=== PATIENT | male | born 1945 | race Caucasian/White ===

== ENCOUNTER 2024-01-26 14:12 | Outpatient (OUT) | payer MEDICARE, SELFPAY ==
--- NOTE | 2024-01-26 14:23 | XR_ITS ---
The [address] [address] Patient Name: OPAL STAFFORD MRN: [id number] date: 1945 Sex: M Assigned Patient Location: [facility] Current Patient Location: [facility] Accession/Order Number: [id number] Exam Date: 01/26/2024 14:33 Report Date: 01/28/2024 08:54 At the request of: EDI HOOKER Procedure: XR hip RT 2V w/ pelvis PROCEDURE: XR hip RT 2V w/ pelvis HISTORY: Right Hip Pain COMPARISON: None. FINDINGS: BONES:No fracture, acute abnormality, or significant arthropathy. SOFT TISSUES:No visible soft tissue swelling. EFFUSION:None visible. OTHER: Negative. XR/XR hip RT 2V w/ pelvis IMPRESSION: 1. No acute abnormality or significant degenerative change of the hip joints. 2. Degenerative changes and compression fractures seen on lumbar spine x-ray. Please see corresponding report. Electronically authenticated by: SIXTO AZUL Date: 01/28/2024 08:54
--- NOTE | 2024-01-26 14:23 | XR_ITS ---
The [place] [id number] Patient Name: OPAL STAFFORD MRN: [id number] date: 1945 Sex: M Assigned Patient Location: [facility] Current Patient Location: [facility] Accession/Order Number: [id number] Exam Date: 01/26/2024 14:33 Report Date: 01/28/2024 08:53 At the request of: EDI HOOKER Procedure: XR lumbar spine 6V w bending EXAMINATION: XR lumbar spine 6V w bending HISTORY: Low Back Pain M54.50 ; right side back pain radiating into right hip COMPARISON: No relevant comparison available. FINDINGS: BONES: Moderate compression fracture of L1 and L5; increased density adjacent superior endplate of L5. Minimal grade 1 retrolisthesis of L2 on 3, L3 on 4, L4 on 5. No change in alignment during flexion and extension. Multilevel moderate degenerative facet arthropathy. DISC SPACES: Moderate narrowing L4-L5, L5-S1. PARASPINOUS: Negative. No paraspinous abnormality is seen. OTHER: Negative. XR/XR lumbar spine 6V w bending IMPRESSION: 1. Age-indeterminate moderate compression fractures of L1 and L5 vertebral bodies. L5 is suspected to be acute to subacute. L1 favors chronic. 2. Mild to moderate degenerative changes of lower lumbar spine. Electronically authenticated by: SIXTO AZUL Date: 01/28/2024 08:53
== END 2024-01-26 14:13 | disposition home or self-care (01) ==
LOC: RAD 14:14
PROVIDERS: PCP Internal Medicine; Visit Provider Internal Medicine
DX: M54.50 Low back pain, unspecified (principal); M25.551 Pain in right hip; M48.56XA Collapsed vertebra, not elsewhere classified, lumbar region, initial encounter for fracture
CPT/HCPCS: 72114; 73502

== ENCOUNTER 2024-02-16 08:05 | Outpatient (OUT) | payer MEDICARE, SELFPAY ==
--- OUTSIDE RECORDS SUMMARY | 2024-02-16 08:06 | XMS_ITS | CCD ---
Author Organization [facility] Care Team Providers Care Cuff Setter Lockstitch Name Role Phone Agapito Linton Attending Provider [phone] Josh Jenkins Primary Care Provider REQUEST, DR ROBBINS LISTED Consulting Unavaila ble REQUEST, DR ROBBINS LISTED Admitting Unavaila ble NHUNG, DR DALEY Primary Care Unavailable REQUEST, DR ROBBINS LISTED Attending Unavaila ble BALL, DR DALEY Attending Unavailable BALL, DR DALEY Consulting Unavailable BALL, DR DALEY Primary Care Unavailable NHUNG, DR DALEY Admitting Unavailable Josh Hooker Unavailable Unavailable Unavailable Unavailable Medications Current Medications Medication Drug Class(es) Dates Sig (Normalized) Sig (Original) fluocinolone acetonide 0.1 mg/ml otic solution (5 sources) Corticosteroid Start: 04-01-2023 Fluocinolone Acetonide 0.01 % 5 drops into affected ear Otic Twice a day as needed for 7 days March, Active predniSONE 20 mg oral tablet (5 sources) Start: 04-01-2023 predniSONE 20 MG 1 tablet Orally three time daily w/ food x 3 days then bid w/ food x 3 days then qd w/ food x 3 days for 9 days March, Active Completed/Discontinued Medications Medication Drug Class(es) Dates Sig (Normalized) Sig (Original) triamcinolone acetonide 40 mg/ml injectable suspension (5 sources) Corticosteroid Start: 04-01-2023 Kenalog-40 March, 60 mg Problems Problem Classification Problem Date Documented Da te Episodic/Chronic Allergic reactions (4 sources) Other urticaria Episodic Hyperplasia of prostate (6 sources) Lower urinary tract symptoms due to benign prostatic hypertrophy; Translations: [Benign prostatic hyperplasia with lower urinary tract symptoms] Chronic Malaise and fatigue (12 sources) Fatigue; Translations: [Other fatigue] Episodic Other ear and sense organ disorders (5 sources) Chronic eczema of external auditory canal; Translations: [Other otitis externa, bilateral] Chronic Other ear and sense organ disorders (2 sources) Other otitis externa, bilateral Chronic Other screening for suspected conditions (not mental disorders or infectious disease) (1 source) Encounter for screening for malignant neoplasm of prostate Episodic Substance-related disorders (6 sources) Tobacco user; Translations: [Nicotine dependence, cigarettes, in remission] Chronic Results Test Name Value Interpretation Reference Range Facil ity CBC AUTO DIFFon 04-13-2023 BASO # 0.0 103/ul Normal 0.0-0.1 [facility] Comment on above: Performed By: #### C BC #### [facility] [address] [address] [address] Teresita Nixon Basophils/100 WBC (Bld) 0.3 % Normal 0.2-2.0 [facility] Comment on above: Performed By: #### C BC #### [facility] [address] [place] [address] Dr. Teresita Nixon EO # 0.1 103/ul Normal 0.0-0.7 [facility] Comment on above: Performed By: #### C BC #### [facility] [address] [address] [address] Teresita Nixon Eosinophils/100 WBC (Bld) 0.3 % Critically low 0.9-7.0 [facility] Comment on above: Performed By: #### C BC #### [facility] [address] [place] [address] Dr. Teresita Nixon Erythrocyte distribution width (RBC) [Ratio] 14.1 % Normal 11.0-15.0 [facility] Comment on above: Performed By: #### C BC #### [facility] [address] [place] [address] Dr. Teresita Nixon Hematocrit (Bld) [Volume fraction] 51.1 % Normal 42.0-54.0 [facility] Comment on above: Performed By: #### C BC #### [facility] [address] [place] [address] Dr. Teresita Nixon Hemoglobin (Bld) [Mass/Vol] 16.9 g/dL Normal 14.0-18.0 [facility] Comment on above: Performed By: #### C BC #### [facility] [address] [address] [address] Teresita Nixon IG # 0.15 10e3/ul Critically high 0.00-0.03 [facility] Comment on above: Performed By: #### C BC #### [facility] [address] [address] [address] Teresita Nixon IG % 1.0 % Critically high 0.0-0.5 [facility] Comment on above: Performed By: #### C BC #### [facility] [address] [address] [address] Teresita Nixon LYMPH # 1.3 103/ul Normal 1.2-3.8 [facility] Comment on above: Performed By: #### C BC #### [facility] [address] [place] [address] Dr. Teresita Nixon Lymphocytes/100 WBC (Bld) 8.8 % Critically low 20.5-60.0 [facility] Comment on above: Performed By: #### C BC #### [facility] [address] [place] [address] Dr. Teresita Nixon MANUAL DIFF REQ NO Normal [facility] Comment on above: Performed By: #### C BC #### [facility] [address] [place] [address] Dr. Teresita Nixon MCH (RBC) [Entitic mass] 31.8 pg Normal 25.9-34.0 [facility] Comment on above: Performed By: #### C BC #### [facility] [address] [place] [address] Dr. Teresita Nixon MCHC (RBC) [Mass/Vol] 33.1 g/dL Normal 29.9-35.2 [facility] Comment on above: Performed By: #### C BC #### [facility] [address] [place] [address] Dr. Teresita Nixon MCV (RBC) [Entitic vol] 96.1 fL Critically high 80.0-94.0 [facility] Comment on above: Performed By: #### C BC #### [facility] [address] [place] [address] Dr. Teresita Nixon MONO # 0.7 103/ul Normal 0.3-0.8 [facility] Comment on above: Performed By: #### C BC #### [facility] [address] [place], [place] [id number] Dr. Teresita Nixon Monocytes/100 WBC (Bld) 4.7 % Normal 1.7-12.0 [facility] Comment on above: Performed By: #### C BC #### [facility] [address] [place] [address] Dr. Teresita Nixon NEUT # 12.5 103/ul Critically high 1.4-6.5 [facility] Comment on above: Performed By: #### C BC #### [facility] [address] [place] [address] Dr. Teresita Nixon Neutrophils/100 WBC (Bld) 84.9 % Critically high 43.0-75.0 [facility] Comment on above: Performed By: #### C BC #### [facility] [address] [place] [address] Dr. Teresita Nixon Platelet mean volume (Bld) [Entitic vol] 9.7 fL Normal 9.5-13.5 [facility] Comment on above: Performed By: #### C BC #### [facility] [address] [place] [address] Dr. Teresita Nixon PLT 227 103/ul Normal 150-450 [facility] Comment on above: Performed By: #### C BC #### [facility] [address] [place] [address] Dr. Teresita Nixon RBC 5.32 106/ul Normal 4.70-6.10 [facility] Comment on above: Performed By: #### C BC #### [facility] [address] [place], [place] [id number] Dr. Teresita Nixon WBC 14.7 103/ul Critically high 4.0-11.0 [facility] Comment on above: Performed By: #### C BC #### [facility] [address] [place] [address] Dr. Teresita Nixon PROF CHEM 8 (BAS METB)on Anion gap [Moles/Vol] 12.2 mmol/L Normal [facility] Comment on above: Performed By: #### B MP, TSH #### [facility] [address] [place] [address] Dr. Teresita Nixon Calcium [Mass/Vol] 9.6 mg/dL Normal 8.5-10.1 [facility] Comment on above: Performed By: #### B MP, TSH #### [facility] [address] [place] [address] Dr. Teresita Nixon Chloride [Moles/Vol] 101 mmol/L Normal 98-107 [facility] Comment on above: Performed By: #### B GALINA, TSH #### [facility] [address] [place] [address] Dr. Teresita Nixon CO2 [Moles/Vol] 30.6 mmol/L Normal 21.0-32.0 [facility] Comment on above: Performed By: #### B GALINA, TSH #### [facility] [address] [place] [address] Dr. Teresita Nixon Creatinine [Mass/Vol] 1.07 mg/dL Normal 0.70-1.30 [facility] Comment on above: Performed By: #### B GALINA, TSH #### [facility] [address] [place] [address] Dr. Teresita Nixon EGFR-AF BURMESE >60 Normal >=60 [facility] Comment on above: Performed By: #### B GALINA, TSH #### [facility] [address] [place] [address] Dr. Teresita Nixon EGFR-NON AF BURMESE >60 Normal >=60 [facility] Comment on above: Performed By: #### B MP, TSH #### [facility] [address] [place] [address] Dr. Teresita Nixon Glucose [Mass/Vol] 102 mg/dL Normal 74-106 [facility] Comment on above: Performed By: #### B MP, TSH #### [facility] [address] [place] [address] Dr. Teresita Nixon Potassium [Moles/Vol] 4.8 mmol/L Normal 3.5-5.1 [facility] Comment on above: Performed By: #### B MP, TSH #### [facility] [address] [address] [address] Teresita Nixon Sodium [Moles/Vol] 139 mmol/L Normal 136-145 [facility] Comment on above: Performed By: #### B MP, TSH #### [facility] [address] [address] [address] Teresita Nixon Urea nitrogen [Mass/Vol] 19.0 mg/dL Critically high 7.0-18.0 [facility] Comment on above: Performed By: #### B MP, TSH #### [facility] [address] [place] [address] Dr. Teresita Nixon Urea nitrogen/Creatinine [Mass ratio] 17.8 mg/mg Normal [facility] Comment on above: Performed By: #### B MP, TSH #### [facility] [address] [place] [address] Dr. Teresita Nixon TSHon 04-13-2023 TSH 0.794 uIU/mL Normal 0.358-3.740 [facility] Comment on above: Performed By: #### B MP, TSH #### [facility] [address] [place] [address] Dr. Teresita Nixon Vital Signs Date Time Vital Sign Value Performing Clinician Facility 07-05-2023 09:30-0400 Body height 175.26 cm Josh Hooker Other [facility] Other 07-05-2023 09:30-0400 Body mass index (BMI) [Ratio] 21.79 kg/m2 Josh [employer] Other [facility] Other 07-05-2023 09:30-0400 Body weight 66.95 kg Josh Hooker Other [facility] Other 07-05-2023 09:30-0400 Diastolic blood pressure 81 mm[Hg] Josh [employer] Other [facility] Other 07-05-2023 09:30-0400 Respiratory rate 12 /min Josh Ball Other [facility] Other 07-05-2023 09:30-0400 Systolic blood pressure 136 mm[Hg] Josh Ball Other [facility] Other 04-01-2023 10:45-0400 Body height 175.26 cm Josh Ball Other [facility] Other 04-01-2023 10:45-0400 Body mass index (BMI) [Ratio] 23.06 kg/m2 Josh Ball Other [facility] Other 04-01-2023 10:45-0400 Body weight 70.85 kg Josh Ball Other [facility] Other 04-01-2023 10:45-0400 Diastolic blood pressure 87 mm[Hg] Josh Ball Other [facility] Other 04-01-2023 10:45-0400 Respiratory rate 12 /min Josh Ball Other [facility] Other 04-01-2023 10:45-0400 Systolic blood pressure 146 mm[Hg] Josh Ball Other [facility] Other Encounters Encounter Date Encounter Type Care Provider Facility Start: 07-05-2023 End: 07-05-2023 ambulatory Josh Ball Other [facility] Other Start: 07-05-2023 Patient encounter procedure Josh Nhung [facility] Start: 05-06-2023 End: 05-06-2023 ambulatory Josh Ball Other [facility] Other Start: 05-06-2023 Telephone encounter Josh Hooker [facility] Start: 04-13-[address] JOSH HOOKER Facili ty:H1 Start: 04-12-2023 End: 04-12-2023 ambulatory Josh Hooker Other [facility] Other Start: 04-12-2023 Telephone encounter Josh Hooker FP [facility] Start: 04-01-2023 End: 04-01-2023 ambulatory Josh Hooker Other [facility] Other Start: 04-01-2023 Office outpatient vi sit 15 minutes Josh Hooker [facility] Start: 07-28-2022 End: 07-29-[address] ROBBINS LISTED REQUEST Facility: Start: 01-15-2021 End: 01-15-2021 Discharged Recurring [facility]Covid Vaccine Procedures Date Procedure Procedure Detail Performing Clinician Start: 07-28-[address] ROBBINS L ISTED REQUEST Comment on above: Performed By: #### D ATPSA #### [facility] [address] [place] [address] Dr. Teresita Nixon Immunizations Immunization Date Immunization Notes Care Provider Fa mikie 08-26-2022 COVID-19 Moderna (BIvalent) Josh Hooker Other [facility] Other 08-26-2022 influenza, high dose seasonal, preservative-free Josh Hooker Other [facility] Other 09-16-2021 COVID-19 Vaccine Moderna - Documentation Purposes Only Josh Hooker Other [facility] Other 08-17-2021 influenza virus vaccine, split virus (incl. purified surface antigen) Josh Hooker Other [facility] Other 01-15-2021 COVID-19 mRNA-1273 (Moderna) [facility] 12-18-2020 COVID-19 mRNA-1273 (Moderna) [facility] 08-01-2020 influenza virus vaccine, split virus (incl. purified surface antigen) Josh Hooker Other [facility] Other 08-23-2019 influenza virus vaccine, split virus (incl. purified surface antigen) Josh Nhung Other [facility] Other 07-12-2017 influenza virus vaccine, split virus (incl. purified surface antigen) oJsh Hooker Other [facility] Other 08-26-2016 pneumococcal conjuga te vaccine, 13 valent Josh Hooker Other [facility] Other 08-10-2016 influenza virus vaccine, split virus (incl. purified surface antigen) Josh Hooker Other [facility] Other 08-20-2014 tetanus and diphther ia toxoids, adsorbed, preservative free, for adult use (5 Lf of tetanus toxoid and 2 Lf of diphtheria toxoid) Josh Hooker Other [facility] Other 11-25-2013 tetanus and diphther ia toxoids, adsorbed, preservative free, for adult use (5 Lf of tetanus toxoid and 2 Lf of diphtheria toxoid) Josh Hooker Other [facility] Other 09-26-2013 pneumococcal polysaccharide vaccine, 23 valent Josh Hooker Other [facility] Other Payers Date Payer Category Payer Medicare [id number] 1959 Self-pay [id number] 1959 Unknown [id number] 1945 Unknown [id number] Self-pay Self Pay [id number] Unknown [id number] Unknown [id number] Social History Date Type Detail Facility Tobacco smoking status NHIS Unknown if ever smoked [facility] Start: 1945 Sex Assigned At Male F [facility] Sex Assigned At Sex Assigned At Bir th [facility] Other Goals Date Patient Goal Desired Activity /State Evaluation note 07-05-2023 Note Date & Type Note Facility 07-05-2023 Evaluation note Encounter Date Diagnosis Assessment Notes Jun, Medicare annual wellness visit, subsequent (ICD-10 - Z00.00) Personalized health advice was given to the beneficiary including a written plan for screenings discussed and provided. Advanced care planning reviewed and/or information given as requested. Additional counseling was provided here today in regards to, [ ]. The above visit was performed by [ ], under direct supervision of [ ]. Document reviewed and amended by provider signed below. Jun, Benign prostatic hyperplasia with lower urinary tract symptoms (ICD-10 - N40.1) Symptoms tolerable Yearly PSA Jun, Nicotine dependence, cigarettes, in remission (ICD-10 - F17.211) Continue abstinence. Jun, Screening PSA (prostate specific antigen) (ICD-10 - Z12.5) Yearly PSA Since symptoms stable and previous MARIA DEL CARMEN normal, no further examination performed [facility] Other Evaluation note 05-06-2023 Note Date & Type Note Facility 05-06-2023 Evaluation note Encounter Date Diagnosis Assessment Notes Apr, Acute urticaria (ICD-10 - L50.8) [facility] Other Evaluation note 04-12-2023 Note Date & Type Note Facility 04-12-2023 Evaluation note Encounter Date Diagnosis Assessment Notes March, Acute urticaria (ICD-10 - L50.8) [facility] Other Evaluation note 04-01-2023 Note Date & Type Note Facility 04-01-2023 Evaluation note Encounter Date Diagnosis Assessment Notes March, Acute urticaria (ICD-10 - L50.8) Cool compresses, mild soap (Dove) and avoid scratching. March, Chronic eczematous otitis externa of both ears (ICD-10 - H60.8X3) March, Fatigue, unspecified type (ICD-10 - R53.83) [facility] Other Evaluation note 04-01-2023 Note Date & Type Note Facility 04-01-2023 Evaluation note Encounter Date Diagnosis Assessment Notes March, Acute urticaria (ICD-10 - L50.8) Cool compresses, mild soap (Dove) and avoid scratching. No improvement, refer to Dermatology March, Chronic eczematous otitis externa of both ears (ICD-10 - H60.8X3) Use steroid ear drops as needed for itching. March, Fatigue, unspecified type (ICD-10 - R53.83) Healthy diet, rest and update office in week. [facility] Other History general Narrative - Reported 10-14-2012 Note Date & Type Note Facility 10-14-2012 History general N arrative - Reported Type Medical History Nicotine dependence, cigarettes, in remission Medical History Benign prostatic hyp erplasia with lower urinary tract symptoms Medical History Malaise Medical History Fatigue Surgical History Bilateral cataract 10/2012 Surgical History colonoscopy 07/2018 Hospitalization History see surgical history [facility] Other Advance Directives Advance Directive Response Recorded Date/ Time Advance Directives No December 17, 2020 12:42pm Chief Complaint and Reason for Visit Chief Complaint Vaccine INS Assessments No Assessments Information Available Summary Purpose Family History No Family History Records Found Additional Source Comments (unrecognized sect ion and content) No Status Records Found INFORMATION SOURCE (unrecogn ized section and content) DATE CREATED AUTHOR 04/22/2023 [facility] REASON FOR VISIT (unrecogniz ed section and content) Swelling/RashRashRashNot Get ting BetterWELLNESS FOR RECORDS PERTAINING TO PATIENTS WHO ARE OR HAVE BEEN ENROLLED IN A CHEMICAL DEPENDENCY/SUBSTANCEABUSE PROGRAM, SOME INFORMATION MAY BE OMITTED. This clinical summary was aggregated from multiple sources. Caution should be exercised in using it in the provision of clinical care. This summary normalizes information from multiple sources, and as a consequence, information in this document may materially change the coding, format and clinical context of patient data. In addition, data may be omitted in some cases. CLINICAL DECISIONS SHOULD BE BASED ON THE PRIMARY CLINICAL RECORDS. [facility] [employer] [facility]. provides no warranty or guarantee of the accuracy or completeness of information in this document.
--- NOTE | 2024-02-16 08:09 | MR_ITS ---
The [address] [address] Patient Name: OPAL STAFFORD MRN: [id number] date: 1945 Sex: M Assigned Patient Location: MRI Current Patient Location: MRI Accession/Order Number: [id number] Exam Date: 02/16/2024 08:35 Report Date: 02/16/2024 09:54 At the request of: EDI HOOKER Procedure: MR lumbar spine wo con MR lumbar spine wo con, 02/16/2024 8:35 AM EDT INDICATION: collapsed vertabra M48.56XA COMPARISON: Prior x-ray of the lumbar spine dated 01/26/2024 TECHNIQUE: Multiplanar, multisequential MRI images of lumbar spine were obtained without contrast. FINDINGS: For dictation purposes, the lowest complete disc space in the lumbar spine considered as L5-S1. Right renal lesion with T2 prolongation not fully characterized by this study and statistically may suggest simple renal cyst. Left renal lesion with T2 shortening measuring approximately 5 mm is not completely characterized by this study and may suggest hemorrhagic cyst versus small RCC. There is normal physiologic lumbar lordosis. Old compression deformities of L1 and L5 with loss of height for approximately 70 and 80% respectively. The conus medullaris is at the level of L1-L2. No signal abnormality within the visualized spinal cord is noted. No neural foraminal narrowing or canal stenoses at the level of T12-L1 and L1-L2 is noted. At the level of L2-L3, there are disc bulge with mild left neuroforaminal narrowing and no canal stenosis. At the level of L3-4, there are disc bulge with superimposed central protrusion with mild bilateral neuroforaminal narrowing and severe central canal stenosis. There is asymmetrical right ligamentum flavum thickening at this level. At the level of L4-5, there are disc bulge with moderate bilateral neuroforaminal narrowing and mild canal stenosis. At the level of L5-S1, there are disc bulge with mild right and moderate left neuroforaminal narrowing and no canal stenosis. The paraspinal muscles are unremarkable. MR/MR lumbar spine wo con IMPRESSION: Old compression fraction of L1 and L5. Mild to moderate degenerative changes of lumbar spine in particular at L3-4. Electronically authenticated by: ADRY PARRA Date: 02/16/2024 09:54
== END 2024-02-16 08:06 | disposition home or self-care (01) ==
LOC: MRI 08:05
PROVIDERS: PCP Internal Medicine; Visit Provider Internal Medicine
DX: M48.56XA Collapsed vertebra, not elsewhere classified, lumbar region, initial encounter for fracture (principal); M51.36 Other intervertebral disc degeneration, lumbar region
CPT/HCPCS: 72148

== ENCOUNTER 2024-02-27 07:58 | Outpatient (RCR) | payer MEDICARE, SELFPAY | END 2024-04-04 11:34 | disposition home or self-care (01) | LOC: PT 07:58 | PROVIDERS: PCP Internal Medicine; Visit Provider Internal Medicine | DX: M54.50 Low back pain, unspecified (principal); M79.606 Pain in leg, unspecified | CPT/HCPCS: 20560; 97010; 97035; 97110; 97140; 97161; G0283 ==

== ENCOUNTER 2024-02-29 07:13 | Outpatient (OUT) | payer MEDICARE, SELFPAY ==
--- OUTSIDE RECORDS SUMMARY | 2024-02-29 07:15 | XMS_ITS | CCD ---
Author Organization [facility] Care Team Providers Care Mechanical Artist Name Role Phone Agapito Linton Attending Provider [phone] Josh Jenkins Primary Care Provider REQUEST, DR [...] 04-13-2023 BASO # 0.0 103/ul Normal 0.0-0.1 [facility] Comment on above: Performed By: #### C BC #### [facility] [address] [address] [address] Teresita Nixon Basophils/100 WBC (Bld) 0.3 % Normal 0.2-2.0 [facility] Comment on above: Performed By: #### C BC #### [facility] [address] [place] [address] Dr. Teresita Nixon EO # 0.1 103/ul Normal 0.0-0.7 [facility] Comment on above: Performed By: #### C BC #### [facility] [address] [address] [address] Teresita Nixon Eosinophils/100 WBC (Bld) 0.3 % Critically low 0.9-7.0 [facility] Comment on above: Performed By: #### C BC #### [facility] [address] [place] [address] Dr. Teresita Nixon Erythrocyte distribution width (RBC) [Ratio] 14.1 % Normal 11.0-15.0 [facility] Comment on above: Performed By: #### C BC #### [facility] [address] [place] [address] Dr. Teresita Nixon Hematocrit (Bld) [Volume fraction] 51.1 % Normal 42.0-54.0 [facility] Comment on above: Performed By: #### C BC #### [facility] [address] [place] [address] Dr. Teresita Nixon Hemoglobin (Bld) [Mass/Vol] 16.9 g/dL Normal 14.0-18.0 [facility] Comment on above: Performed By: #### C BC #### [facility] [address] [address] [address] Teresita Nixon IG # 0.15 10e3/ul Critically high 0.00-0.03 [facility] Comment on above: Performed By: #### C BC #### [facility] [address] [address] [address] Teresita Nixon IG % 1.0 % Critically high 0.0-0.5 [facility] Comment on above: Performed By: #### C BC #### [facility] [address] [address] [address] Teresita Nixon LYMPH # 1.3 103/ul Normal 1.2-3.8 [facility] Comment on above: Performed By: #### C BC #### [facility] [address] [place] [address] Dr. Teresita Nixon Lymphocytes/100 WBC (Bld) 8.8 % Critically low 20.5-60.0 [facility] Comment on above: Performed By: #### C BC #### [facility] [address] [place] [address] Dr. Teresita Nixon MANUAL DIFF REQ NO Normal [facility] Comment on above: Performed By: #### C BC #### [facility] [address] [place] [address] Dr. Teresita Nixon MCH (RBC) [Entitic mass] 31.8 pg Normal 25.9-34.0 [facility] Comment on above: Performed By: #### C BC #### [facility] [address] [place] [address] Dr. Teresita Nixon MCHC (RBC) [Mass/Vol] 33.1 g/dL Normal 29.9-35.2 [facility] Comment on above: Performed By: #### C BC #### [facility] [address] [place] [address] Dr. Teresita Nixon MCV (RBC) [Entitic vol] 96.1 fL Critically high 80.0-94.0 [facility] Comment on above: Performed By: #### C BC #### [facility] [address] [place] [address] Dr. Terseita Nixon MONO # 0.7 103/ul Normal 0.3-0.8 [facility] Comment on above: Performed By: #### C BC #### [facility] [address] [place], [place] [id number] Dr. Teresita Nixon Monocytes/100 WBC (Bld) 4.7 % Normal 1.7-12.0 [facility] Comment on above: Performed By: #### C BC #### [facility] [address] [place] [address] Dr. Teresita Nixon NEUT # 12.5 103/ul Critically high 1.4-6.5 [facility] Comment on above: Performed By: #### C BC #### [facility] [address] [place] [address] Dr. Teresita Nixon Neutrophils/100 WBC (Bld) 84.9 % Critically high 43.0-75.0 [facility] Comment on above: Performed By: #### C BC #### [facility] [address] [place] [address] Dr. Teresita Nixon Platelet mean volume (Bld) [Entitic vol] 9.7 fL Normal 9.5-13.5 [facility] Comment on above: Performed By: #### C BC #### [facility] [address] [place] [address] Dr. Teresita Nixon PLT 227 103/ul Normal 150-450 [facility] Comment on above: Performed By: #### C BC #### [facility] [address] [place] [address] Dr. Teresita Nixon RBC 5.32 106/ul Normal 4.70-6.10 [facility] Comment on above: Performed By: #### C BC #### [facility] [address] [place], [place] [address] Dr. Teresita Nixon WBC 14.7 103/ul Critically high 4.0-11.0 [facility] Comment on above: Performed By: #### C BC #### [facility] [address] [place] [address] Dr. Teresita Nixon PROF CHEM 8 (BAS METB)on Anion gap [Moles/Vol] 12.2 mmol/L Normal [facility] Comment on above: Performed By: #### B MP, TSH #### [facility] [address] [place] [address] Dr. Teresita Nixon Calcium [Mass/Vol] 9.6 mg/dL Normal 8.5-10.1 [facility] Comment on above: Performed By: #### B MP, TSH #### [facility] [address] [place] [address] Dr. Teresita Nixon Chloride [Moles/Vol] 101 mmol/L Normal 98-107 [facility] Comment on above: Performed By: #### B GALINA, TSH #### [facility] [address] [place] [address] Dr. Teresita Nixon CO2 [Moles/Vol] 30.6 mmol/L Normal 21.0-32.0 [facility] Comment on above: Performed By: #### B GALINA, TSH #### [facility] [address] [place] [address] Dr. Teresita Nixon Creatinine [Mass/Vol] 1.07 mg/dL Normal 0.70-1.30 [facility] Comment on above: Performed By: #### B GALINA, TSH #### [facility] [address] [place] [address] Dr. Teresita Nixon EGFR-AF TAIWANESE >60 Normal >=60 [facility] Comment on above: Performed By: #### B GALINA, TSH #### [facility] [address] [place] [address] Dr. Teresita Nixon EGFR-NON AF TAIWANESE >60 Normal >=60 [facility] Comment on above: Performed By: #### B MP, TSH #### [facility] [address] [place] [address] Dr. Teresita Nixon Glucose [Mass/Vol] 102 mg/dL Normal 74-106 [facility] Comment on above: Performed By: #### B MP, TSH #### [facility] [address] [place] [address] Dr. Teresita Nixon Potassium [Moles/Vol] 4.8 mmol/L Normal 3.5-5.1 [facility] Comment on above: Performed By: #### B MP, TSH #### [facility] [address] [address] [address] Teresita Nixon Sodium [Moles/Vol] 139 mmol/L Normal 136-145 [facility] Comment on above: Performed By: #### B MP, TSH #### [facility] [address] [address] [address] Teresita Nixon Urea nitrogen [Mass/Vol] 19.0 mg/dL Critically high 7.0-18.0 [facility] Comment on above: Performed By: #### B MP, TSH #### [facility] [address] [place] [address] Dr. Teresita Nixon Urea nitrogen/Creatinine [Mass ratio] 17.8 mg/mg Normal [facility] Comment on above: Performed By: #### B MP, TSH #### [facility] [address] [place] [address] Dr. Teresita Nixon TSHon 04-13-2023 TSH 0.794 uIU/mL Normal 0.358-3.740 [facility] Comment on above: Performed By: #### B MP, TSH #### [facility] [address] [place] [address] Dr. Teresita Nixon Vital Signs Date Time Vital Sign Value Performing Clinician Facility 07-05-2023 09:30-0400 Body height 175.26 cm Josh Hooker Other [facility] Other 07-05-2023 09:30-0400 Body mass index (BMI) [Ratio] 21.79 kg/m2 Josh Loccit ([facility]) Other [facility] Other 07-05-2023 09:30-0400 Body weight 66.95 kg Josh Hooker Other [facility] Other 07-05-2023 09:30-0400 Diastolic blood pressure 81 mm[Hg] Josh Loccit ([facility]) Other [facility] Other 07-05-2023 09:30-0400 Respiratory rate 12 /min Josh Ball Other [facility] Other 07-05-2023 09:30-0400 Systolic blood pressure 136 mm[Hg] Josh Ball Other [facility] Other 04-01-2023 10:45-0400 Body height 175.26 cm Josh Ball Other [facility] Other 04-01-2023 10:45-0400 Body mass index (BMI) [Ratio] 23.06 kg/m2 Josh Ball Other [facility] Other 04-01-2023 10:45-0400 Body weight 70.85 kg Josh Ball Other [facility] Other 04-01-2023 10:45-0400 Diastolic blood pressure 87 mm[Hg] Josh Ball Other [facility] Other 04-01-2023 10:45-0400 Respiratory rate 12 /min Josh Ball Other [facility] Other 04-01-2023 10:45-0400 Systolic blood pressure 146 mm[Hg] Josh Ball Other [facility] Other Encounters Encounter Date Encounter Type Care Provider Facility Start: 07-05-2023 End: 07-05-2023 ambulatory Josh Ball Other [facility] Other Start: 07-05-2023 Patient encounter procedure Josh Nhung [facility] Start: 05-06-2023 End: 05-06-2023 ambulatory Josh Ball Other [facility] Other Start: 05-06-2023 Telephone encounter Josh Hooker [facility] Start: 04-13-[address] JOSH HOOKER Facili ty:H1 Start: 04-12-2023 End: 04-12-2023 ambulatory Josh Hooker Other [facility] Other Start: 04-12-2023 Telephone encounter Josh Hooker [facility] Start: 04-01-2023 End: 04-01-2023 ambulatory Josh Hooker Other [facility] Other Start: 04-01-2023 Office outpatient vi sit 15 minutes Josh Hooker [facility] Start: 07-28-2022 End: 07-29-[address] ROBBINS LISTED REQUEST Facility: Start: 01-15-2021 End: 01-15-2021 Discharged Recurring [facility]-Covid Vaccine Procedures Date Procedure Procedure Detail Performing Clinician Start: 07-28-[address] ROBBINS L ISTED REQUEST Comment on above: Performed By: #### D ATPSA #### [facility] [address] [place] [address] Dr. Teresita Nixon Immunizations Immunization Date Immunization Notes Care Provider Fa mikie 08-26-2022 COVID-19 Moderna (BIvalent) Josh Hooker Other [facility] Other 08-26-2022 influenza, high dose seasonal, preservative-free Josh Hooker Other [facility] Other 09-16-2021 COVID-19 Vaccine Moderna - Documentation Purposes Only Josh Hooker Other [facility] Other 08-17-2021 influenza virus vaccine, split virus (incl. purified surface antigen) Josh Hooker Other [facility] Other 01-15-2021 COVID-19 mRNA-1273 (Moderna) [facility] 12-18-2020 COVID-19 mRNA-1273 (Moderna) [facility] 08-01-2020 influenza virus vaccine, split virus (incl. purified surface antigen) Josh Hooker Other [facility] Other 08-23-2019 influenza virus vaccine, split virus (incl. purified surface antigen) Josh Nhung Other [facility] Other 07-12-2017 influenza virus vaccine, split virus (incl. purified surface antigen) Josh Hooker Other [facility] Other 08-26-2016 pneumococcal conjuga te vaccine, 13 valent Josh Hooker Other [facility] Other 08-10-2016 influenza virus vaccine, split virus (incl. purified surface antigen) oJsh Hooker Other [facility] Other 08-20-2014 tetanus and diphther ia toxoids, adsorbed, preservative free, for adult use (5 Lf of tetanus toxoid and 2 Lf of diphtheria toxoid) Josh Hooker Other [facility] Other 11-25-2013 tetanus and diphther ia toxoids, adsorbed, preservative free, for adult use (5 Lf of tetanus toxoid and 2 Lf of diphtheria toxoid) Josh Hooker Other [facility] Other 09-26-2013 pneumococcal polysaccharide vaccine, 23 valent Josh Hooker Other [facility] Other Payers Date Payer Category Payer Medicare [id number] 1959 Self-pay [id number] 1959 Unknown [id number] 1945 Unknown [id number] Self-pay Self Pay [id number] Unknown [id number] Unknown [id number] Social History Date Type Detail Facility Tobacco smoking status NHIS Unknown if ever smoked [facility] Start: 1945 Sex Assigned At Male F [facility] Sex Assigned At Sex Assigned At Bir th [facility] Other Goals Date Patient Goal Desired Activity [...] DEL CARMEN normal, no further examination performed [facility] Other Evaluation note 05-06-2023 Note Date & Type Note Facility 05-06-2023 Evaluation note Encounter Date Diagnosis Assessment Notes Apr, Acute urticaria (ICD-10 - L50.8) [facility] Other Evaluation note 04-12-2023 Note Date & Type Note Facility 04-12-2023 Evaluation note Encounter Date Diagnosis Assessment Notes March, Acute urticaria (ICD-10 - L50.8) [facility] Other Evaluation note 04-01-2023 Note Date & Type Note Facility 04-01-2023 Evaluation note Encounter Date Diagnosis Assessment Notes March, Acute urticaria (ICD-10 - L50.8) Cool compresses, mild soap (Dove) and avoid scratching. 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 [facility] Other History general Narrative - Reported 10-14-2012 Note Date & Type Note Facility 10-14-2012 History general N arrative - Reported Type Medical History Nicotine dependence, cigarettes, in remission Medical History Benign prostatic hyp erplasia with lower urinary tract symptoms Medical History Malaise Medical History Fatigue Surgical History Bilateral cataract 10/2012 Surgical History colonoscopy 07/2018 Hospitalization History see surgical history [facility] Other Advance Directives Advance Directive Response Recorded [...] and content) DATE CREATED AUTHOR 04/22/2023 [facility] REASON FOR VISIT (unrecogniz ed [...] BE BASED ON THE PRIMARY CLINICAL RECORDS. [facility] [employer]. provides no warranty or guarantee of the accuracy or completeness of information in this document.
--- NOTE | 2024-02-29 07:21 | CT_ITS ---
[address] [address] Patient Name: OPAL STAFFORD MRN: [id number] date: 1945 Sex: M Assigned Patient Location: LAB Current Patient Location: LAB Accession/Order Number: [id number] Exam Date: 02/29/2024 07:55 Report Date: 02/29/2024 09:46 At the request of: EDI HOOKER Procedure: CT abdomen w con EXAMINATION: CT abdomen w con HISTORY: Acquired Renal Cyst COMPARISON: MRI 02/16/2024 TECHNIQUE: CT images were created with IV contrast. Axial, Coronal, and Sagittal images. Dose reduction techniques were achieved by using automated exposure control and/or adjustment of mA and/or kV according to patient size and/or use of iterative reconstruction technique. FINDINGS: LUNG BASES: Moderate centrilobular emphysema LIVER: No enlargement, atrophy, abnormal density, or significant focal lesion. BILIARY: No visible dilatation or calcification. PANCREAS: No lesion, fluid collection, ductal dilatation, or atrophy. SPLEEN: No enlargement or focal lesion. ADRENALS: No mass or enlargement. KIDNEYS: 5 mm low-density lesion medial upper right renal cortex axial image 31. 3.6 cm nonenhancing partially exophytic lesion right lateral midpole cortex consistent with a simple cyst. No solid enhancing mass or hydronephrosis. Punctate nonobstructing left nephrolith versus vascular calcification BOWEL/MESENTERY: No visible mass, obstruction, or bowel wall thickening. AORTA/VASCULAR: No aortic aneurysm. Moderate diffuse atherosclerosis RETROPERITONEUM: No mass or adenopathy. LYMPH NODES: No adenopathy. ABDOMINAL WALL: No mass or hernia. BONES: No bony lesion or fracture. 30% anterior wedge compression fracture of the L1 vertebral body OTHER: Negative. CT/CT abdomen w con IMPRESSION: 2 nonenhancing right renal cortical lesions consistent with simple cysts. No further evaluation is required Electronically authenticated by: JAS MARIE Date: 02/29/2024 09:46
[2024-02-29 07:31] LABS: Estimated GFR (African America >60 (>=60); Estimated GFR (Non-African Ame 60 (>=60)
== END 2024-02-29 07:14 | disposition home or self-care (01) ==
LOC: LAB 07:13
PROVIDERS: PCP Internal Medicine; Visit Provider Internal Medicine
DX: N28.1 Cyst of kidney, acquired (principal)
CPT/HCPCS: 36415; 74160; 82565; Q9967

== ENCOUNTER 2024-07-06 09:51 | Outpatient (OUT) | payer MEDICARE, SELFPAY ==
[2024-07-06 12:54] LABS: Prostate Specific Antigen Scrn 0.97 ng/mL (<=4.00)
== END 2024-07-06 09:52 | disposition home or self-care (01) ==
LOC: LAB 09:53
PROVIDERS: Visit Provider Internal Medicine
DX: Z12.5 Encounter for screening for malignant neoplasm of prostate (principal)
CPT/HCPCS: 36415; G0103

== ENCOUNTER 2025-05-01 15:07 | Outpatient (OUT) | payer MEDICARE, SELFPAY ==
--- NOTE | 2025-05-01 15:22 | XR_ITS ---
The [address] [address] Patient Name: OPAL STAFFORD MRN: [id number] date: 1945 Sex: M Assigned Patient Location: LAB Current Patient Location: LAB Accession/Order Number: [id number] Exam Date: 05/01/2025 15:37 Report Date: 05/01/2025 15:38 At the request of: EDI HOOKER DO Procedure: XR chest 2V Chest 2 views CLINICAL HISTORY: cough R05.9 COMPARISON: None FINDINGS: Heart appears normal in size. Presumed chronic interstitial changes. No consolidation pneumothorax pleural effusion or free air. XR/XR chest 2V IMPRESSION: CHRONIC APPEARING INTERSTITIAL CHANGES. NO CONSOLIDATION TO SUGGEST PNEUMONIA. Impression dictated by: Praveena Millard Jr.OYumiko 05/01/2025 3:38 PM Dictation Location: [address] [address] Electronically authenticated by: [id number] Y Date: 05/01/2025 15:38
== END 2025-05-01 15:08 | disposition home or self-care (01) ==
LOC: LAB 15:09
PROVIDERS: PCP Internal Medicine; Visit Provider Internal Medicine
DX: R05.9 Cough, unspecified (principal)
CPT/HCPCS: 71046